=== PATIENT | male | born 1955 | race Caucasian/White ===

== ENCOUNTER → 2022-10-12 09:48 | Outpatient (CLI) | payer OTHER, SELFPAY | PROVIDERS: PCP Family Medicine; Visit Provider Physician Assistant | DX: N39.0 Urinary tract infection, site not specified (principal); N40.0 Benign prostatic hyperplasia without lower urinary tract symptoms; N41.9 Inflammatory disease of prostate, unspecified | CPT/HCPCS: 87077; 87086 ==

== ENCOUNTER → 2022-11-15 16:39 | Outpatient (CLI) | payer OTHER, SELFPAY ==
--- NOTE | 2022-11-15 16:41 | DI.US.S_ITS ---
PROCEDURE: US ABDOMEN COMPLETE INDICATIONS: ABDOMINAL PAIN TECHNIQUE: Real-time scanning was performed of the abdominal and retroperitoneal organs, with image documentation. COMPARISON: None. FINDINGS: Liver: Liver is normal in size and homogeneous in echotexture. Gallbladder: No stones. Wall thickness is normal measuring 1.4 mm. Biliary ducts: Not well seen although no gross dilation. Pancreas: Visualized portions of the pancreas are sonographically normal. Spleen: Spleen is normal in size and homogeneous in echotexture. Kidneys: Kidneys are normal in size and echotexture. Right kidney measures 13.5 cm long; left kidney measures 13.7 cm long. No hydronephrosis or nephrolithiasis. No solid masses. Aorta: Aorta is poorly visualized secondary to overlying bowel gas. The midportion appears prominent within visualized sections measuring approximately 4.3 x 4.1 x 3.3 cm. However, it is suboptimally evaluated. Iliacs: Proximal common iliac arteries are normal in caliber at less than 2.5 cm. IVC: Intrahepatic inferior vena cava is patent. Miscellaneous: No free abdominal fluid. Prostate gland is enlarged. IMPRESSION: Potential mid aortic aneurysmal dilation. It is poorly visualized secondary to overlying bowel gas. Short interval imaging follow-up is recommended for further evaluation. Dictated by: Criselda Gleason M.D. on 11/16/2022 at 15:07 Approved by: Criselda Gleason M.D. on 11/16/2022 at 15:09
== END ==
PROVIDERS: PCP Family Medicine; Referring Provider Family Medicine; Visit Provider Family Medicine
DX: R10.11 Right upper quadrant pain (principal); G89.29 Other chronic pain
CPT/HCPCS: 76700

== ENCOUNTER → 2022-12-27 11:47 | Outpatient (CLI) | payer OTHER, SELFPAY | PROVIDERS: PCP Family Medicine; Visit Provider Urology | DX: R31.0 Gross hematuria (principal) | CPT/HCPCS: 87086 ==

== ENCOUNTER → 2023-01-08 09:32 | Outpatient (CLI) | payer OTHER, SELFPAY | PROVIDERS: PCP Family Medicine; Visit Provider Urology | DX: R31.0 Gross hematuria (principal) | CPT/HCPCS: 87086 ==

== ENCOUNTER → 2023-01-12 09:43 | Outpatient (CLI) | payer OTHER, SELFPAY | PROVIDERS: PCP Family Medicine; Visit Provider Urology | DX: N40.0 Benign prostatic hyperplasia without lower urinary tract symptoms (principal); R31.9 Hematuria, unspecified; Z85.51 Personal history of malignant neoplasm of bladder | CPT/HCPCS: 52000; 81002; 87086; 99213 ==

== ENCOUNTER → 2023-01-22 10:45 | Outpatient (CLI) | payer OTHER, SELFPAY ==
[2023-01-22 12:05] LABS: Estimated Glomerular Filt Rate > 60 mL/min (>60)
== END ==
PROVIDERS: PCP Family Medicine; Referring Provider Family Medicine; Visit Provider Family Medicine
DX: N40.0 Benign prostatic hyperplasia without lower urinary tract symptoms (principal); R31.9 Hematuria, unspecified; Z85.51 Personal history of malignant neoplasm of bladder
CPT/HCPCS: 36415; 82565

== ENCOUNTER → 2023-01-26 10:51 | Outpatient (CLI) | payer OTHER, SELFPAY ==
--- NOTE | 2023-01-26 10:53 | DI.CT.S_ITS ---
PROCEDURE: CT ABDOMEN PELVIS WO/W CON INDICATIONS: History of bladder cancer/history of PAE TECHNIQUE: Optional 5 mm thick noncontrast images acquired from the diaphragm to the symphysis pubis. After the administration of intravenous contrast, 5 mm thick images acquired from the diaphragm to the symphysis pubis after a 10-minute delay. 2 mm thick coronal and sagittal reformats were then performed of the kidneys and ureters. For radiation dose reduction, the following was used: automated exposure control, adjustment of mA and/or kV according to patient size. COMPARISON: None. FINDINGS: Image quality: Excellent. Lung bases: Lung bases are clear. Heart size is normal. Urinary system: Both kidneys are normal in size, without hydronephrosis or nephrolithiasis on pre-contrast images. No perinephric fat stranding. There is normal bilateral renal enhancement. Renal calyces appear normal in morphology when filled with contrast. Opacified portions of both ureters demonstrate normal caliber. Bladder wall thickness is normal. No calcified bladder stones. There is a peripherally calcified mass projecting off the median zone of the prostate measuring 3.5 x 2.1 centimeters. Other solid organs: Liver is normal in size and enhancement. Gallbladder is absent. Biliary system is non dilated. Pancreas enhances normally. Spleen is normal in size and enhancement. No adrenal nodules. Peritoneum and bowel: Bowel loops demonstrate normal wall thickness and caliber. No free fluid or air. Nodes and vessels: No retroperitoneal or mesenteric adenopathy by size criteria. Aorta and inferior vena cava are normal in size. Abdominal wall: No ventral hernias. Pelvis: No pathologic free pelvic fluid. No inguinal hernias or adenopathy. Prostatomegaly Bones: No suspicious bony lesions. No vertebral body compression fractures. Bilateral sacroiliitis. IMPRESSION: There is a peripherally calcified mass projecting off the median zone of the prostate measuring 3.5 x 2.1 centimeters. Is unclear if this is prostatic in etiology versus bladder wall adjacent to the prostate. Direct visualization is recommended, if not performed recently. Prior pelvic lymph node dissection, without adenopathy. Dictated by: Rafat lGaser M.D. on 01/26/2023 at 13:42 Approved by: Rafat Glaser M.D. on 01/26/2023 at 13:51
== END ==
PROVIDERS: PCP Family Medicine; Referring Provider Urology; Visit Provider Urology
DX: N42.0 Calculus of prostate (principal); R31.9 Hematuria, unspecified; N40.0 Benign prostatic hyperplasia without lower urinary tract symptoms; I71.9 Aortic aneurysm of unspecified site, without rupture; Z85.51 Personal history of malignant neoplasm of bladder; Z98.890 Other specified postprocedural states
CPT/HCPCS: 74178; Q9967

== ENCOUNTER → 2023-02-02 11:51 | Outpatient (CLI) | payer OTHER, SELFPAY ==
[2023-02-02 20:31] LABS: Appearance Urine UA CLEAR; Bilirubin Urine UA NEGATIVE (NEGATIVE); Color Urine UA YELLOW; Glucose Urine UA NEGATIVE (Negative); Ketones Urine UA NEGATIVE (NEGATIVE); Leukocyte Esterase Urine UA 2+ (NEGATIVE); Nitrite Urine UA POSITIVE (Negative); Occult Blood Urine UA 2+ (Negative); Protein Urine UA 1+ (Negative); Urobilinogen Urine UA 0.2 E.U./dL (0.2)
[2023-02-02 20:45] LABS: RBC Urine 1-5/HPF (0-5/HPF); WBC Urine 10-30/HPF (0-5/HPF)
[2023-02-02 20:46] LABS: Bacteria Urine Moderate (10-30)
== END ==
PROVIDERS: PCP Family Medicine; Visit Provider Urology
DX: N40.1 Benign prostatic hyperplasia with lower urinary tract symptoms (principal); N41.0 Acute prostatitis; R31.0 Gross hematuria
CPT/HCPCS: 81001; 87077; 87086

== ENCOUNTER → 2023-02-26 11:03 | Outpatient (CLI) | payer OTHER, SELFPAY ==
[2023-02-26 19:15] LABS: Appearance Urine UA CLEAR; Bilirubin Urine UA NEGATIVE (NEGATIVE); Color Urine UA YELLOW; Glucose Urine UA NEGATIVE (Negative); Ketones Urine UA NEGATIVE (NEGATIVE); Leukocyte Esterase Urine UA 2+ (NEGATIVE); Nitrite Urine UA NEGATIVE (Negative); Occult Blood Urine UA 3+ (Negative); Protein Urine UA NEGATIVE (Negative); Specific Gravity Urine UA <=1.005 (1.000-1.035); Urobilinogen Urine UA 0.2 E.U./dL (0.2)
[2023-02-26 20:03] LABS: RBC Urine None Seen (0-5/HPF); WBC Urine 1-5/HPF (0-5/HPF)
[2023-02-26 20:04] LABS: Bacteria Urine None Seen; Culture Indicated Urine Specimen Cultured
== END ==
PROVIDERS: PCP Family Medicine; Visit Provider Urology
DX: N40.1 Benign prostatic hyperplasia with lower urinary tract symptoms (principal); R31.0 Gross hematuria
CPT/HCPCS: 81001; 87086

== ENCOUNTER 2023-03-06 06:40 | Day surgery (SDC) | payer OTHER, SELFPAY ==
[2023-02-28 14:01] VITALS: BMI 26.9
[2023-03-06] VITALS (7 sets, daily range): BP systolic 103–118; BP diastolic 59–68; PULSE 52–64; RESP 7–18; TEMP 35.8–36.4; O2SAT 98–100; BMI 26.9
--- NOTE | 2023-03-06 | PATH_ITS ---
[facility] Accession Number: [id number] No. of containers..02 Tissue . 01 Material submitted: . PART A: prostate - PROSTATE CALCIFICATION -FRESH PART B: prostate - PROSTATE CHIPS . 01 Diagnosis: A. Prostate Calcifications, Removal: Necrotic tissue with associated dystrophic calcifications, numerous crystals, hematoidin pigment, acute inflammation, and bacterial colonization. No evidence of malignancy. . B. Prostate Chips, Removal: Prostatic tissue with necrosis, chronic and active inflammation, focal calcifications, numerous collections of crystals, and bacterial colonization. No evidence of malignancy. MRV 03/13/2023 1703 Local . 01 Electronically signed: . Lexis Wayne MD, Pathologist NPI- [id number] . 01 Gross description: . A. Received fresh and subsequently placed in formalin, per Dr. Houston and Dr. Crabtree, labeled with the patient's name, , and prostate calcification consists of multiple fragments of dobson, variable soft to gritty tissue weighing 7 grams and aggregating to 3.8 x 3.7 x 2.2 cm. Sectioning reveals a dobson, soft to gritty cut surface. The specimen is submitted entirely in cassettes A1-A8 following a brief decalcification. B. Received in formalin labeled with the patient's name, and prostate chips consists of multiple dobson, rubbery tissue fragments weighing 4 grams and aggregating to 4.4 x 3.1 x 0.5 cm. No discrete lesions are identified. The specimen is submitted entirely in cassettes B1-B3. ([id number]) /MRV 03/07/2023 1909 Local . 01 Pathologist provided ICD-10: N42.0, N21.0 . 01 CPT . 5722732, 600476 Specimen Comment: A courtesy copy of this report has been sent to [phone] Performed at: 01 [facility] [address] [place] [address] [address] [address], [place], [place] [id number] MD Felix Crabtree MD Phone: [phone]
[2023-03-06] MEDS: LACTATED RINGERS 1,000 ML 21 ML IV (07:27)
--- NOTE | 2023-03-06 07:35 | PM.PREOP ---
Pre-operative Note COVID-19 COVID-19 status: Not tested Criteria for continued procedure: Delay expected to result in less-positive ultimate med/surg outcome and Non-surgical alternatives not available or appropriate per current SOC Interval Note History & Physical reviewed/Exam performed by Physician: Yes Changes to H&P: No
[2023-03-06] MEDS: CEFAZOLIN 2 GM/100 ML PREMIX 100 ML IV (07:55)
--- NOTE | 2023-03-06 08:15 | SUR.OPER ---
Lithotomy on padded OR bed, head on pillow, arms secured on padded arm boards at <90 degrees abduction. Legs secured in padded yellow fins stirrups.
[2023-03-06] MEDS: ACETAMINOPHEN 325 MG TABLET PO (08:22)
--- NOTE | 2023-03-06 09:18 | P.OP_ITS ---
Procedure & Clinicians Procedure: Transurethral resection of prostate, cystolitholapaxy mechanical and laser, evacuation of dystrophic calcification and necrotic tissue Same procedure as scheduled: Yes Indications: This 67-year-old male had prostate artery embolization in [facility] to treat his bladder outlet obstruction. He presented with complaints of hematuria and was found to have bladder/prostate calcifications and necrotic material in the prostate. He presents at this time for removal of these abnormal tissues. Surgeon: Luis Houston Click Yes if Unassisted: Yes Anesthesia Type: General Operative Notes Findings: Urethral meatus and urethra normal with normal mucosa. The sphincter as well coapted. Once in the prostate particularly on the patient's right side there is a preponderance of what appears to be necrotic tissue. The prostate bladder junction there is calcifications and as it turns out dystrophic and necrotic tissue. The bladder exhibited some bullous edema. The right ureteral orifice was not observed the left ureteral orifice was in normal position with clear efflux. The dystrophic calcification and putty like tissue was sent as 1 specimen and the resected necrotic prostate tissue as prostate chips and a separate specimen. At the end of the procedure the prostate was wide open. And a 22 Surinamese 5 cc Baird catheter was left in place with 14 cc of sterile water in the balloon. Closure Type: not applicable Specimen(s): other (1. Dystrophic calcifications bladder calcification prostate calcification and putty like tissue2. Prostate chips) Applied: catheter ([address] Baird catheter 14 cc in balloon) Estimated Blood Loss (mL): 5 Blood products transfused: none Procedure in detail: Procedure in detail: After informed consent was obtained, the patient was identified and brought to the operating room previous placed in a supine position on the operative table. Anesthesia was then induced and maintained. Ensuring an adequate level of anesthesia the patient was transitioned to the lithotomy position where he was prepped, draped, prepared for Transurethral procedure. After prepping, draping, time-out and ensuring an adequate level of anesthesia 22 Surinamese cystoscope was passed through the urethra prostate and into the bladder where cystoscopy was performed. With the findings in hand the cystoscope was removed and a continuous-flow laser cystoscope was put in place and laser energy applied to the calcifications on the stone. Has a crossed of calcification was entered there was tissue which did not respond well to the laser therefore the laser was put on standby the laser cystoscope was removed and a regular cystoscope put in place stone crushing forceps was then used to ?chew up and crush the abnormal tissue and stony material?. This was then evacuated and removed with the aid of the stone court advocate. With all of this abnormal tissue and stone removed the continuous flow resectoscope was inserted and the abnormal prostate tissue resected. With this done the chips were then evacuated. Hemostasis was good the bladder was left full and the scope removed. The 22 Surinamese catheter was placed with the aid of a catheter guide 14 cc of sterile water placed in the balloon and the catheter placed to gravity drainage. Patient was awakened having tolerated the procedure well. He was then transferred to the postanesthesia care unit for recovery to be discharged to home. There were no complications Complications: none Post-operative Condition: stable Disposition: PACU Plan for aftercare: Patient to be discharged to home with a Baird catheter. Patient to follow up my office in approximately 10-14 days and this for a voiding trial
[2023-03-06] MEDS: ONDANSETRON 4 MG/2 ML INJ IV (10:54)
== END 2023-03-06 11:48 | disposition home or self-care (01) ==
PROVIDERS: PCP Family Medicine; Referring Provider Urology; Visit Provider Urology
PROC: (CPT 52601; principal; 2023-03-06 07:45)
DX: N21.0 Calculus in bladder (principal); N42.0 Calculus of prostate; Z85.51 Personal history of malignant neoplasm of bladder; I96 Gangrene, not elsewhere classified; N41.0 Acute prostatitis; N41.1 Chronic prostatitis; B96.89 Other specified bacterial agents as the cause of diseases classified elsewhere
CPT/HCPCS: 52601; 52317; J0690; J1885; J2405; J2704; J3010

== ENCOUNTER → 2023-03-21 12:01 | Outpatient (CLI) | payer OTHER, SELFPAY | PROVIDERS: PCP Family Medicine; Visit Provider Urology | DX: N40.0 Benign prostatic hyperplasia without lower urinary tract symptoms (principal); N32.89 Other specified disorders of bladder; N41.9 Inflammatory disease of prostate, unspecified; R31.9 Hematuria, unspecified; N41.0 Acute prostatitis; R39.9 Unspecified symptoms and signs involving the genitourinary system; Z77.22 Contact with and (suspected) exposure to environmental tobacco smoke (acute) (chronic) | CPT/HCPCS: 51798; 81002; 87086 ==

== ENCOUNTER → 2023-04-25 13:01 | Outpatient (CLI) | payer OTHER, SELFPAY | PROVIDERS: PCP Family Medicine; Visit Provider Urology | DX: N32.89 Other specified disorders of bladder (principal); R31.9 Hematuria, unspecified; R39.9 Unspecified symptoms and signs involving the genitourinary system | CPT/HCPCS: 81002; 87086 ==

== ENCOUNTER → 2023-05-28 10:10 | Outpatient (CLI) | payer OTHER, SELFPAY ==
[2023-05-28 20:01] LABS: Add Manual Diff / Slide Review NO; Basophils Absolute Auto 0 /uL (0-100); Basophils Percent Auto 0.6 % (0-2); Eosinophils Absolute Auto 200 /uL (0-450); Eosinophils Percent Auto 5.8 % (2-4); Hematocrit 39.1 % (41-53); Hemoglobin 13.2 g/dL (13.5-17.5); Lymphocytes Absolute Auto 1500 /uL (1100-4500); Lymphocytes Percent Auto 37.2 % (25-40); Mean Corpuscular HGB Conc 33.7 % (30-36); Mean Corpuscular Hemoglobin 29.9 PG (26-34); Mean Corpuscular Volume 88.6 fL (80-100); Monocytes Absolute Auto 400 /uL (0-900); Monocytes Percent Auto 9.7 % (3-14); Neutrophils Absolute Auto 1900 /uL (1500-7000); Neutrophils Percent Auto 46.7 % (50-75); Platelet Count 220 X10^3/uL (150-400); Red Blood Cell Count 4.41 X10^6/uL (4.5-5.9); Red Cell Distribution Width 13.6 % (11.6-14.8); White Blood Cell Count 4.1 X10^3/uL (4.5-11.0)
[2023-05-28 20:15] LABS: Alanine Aminotransferase 25 IU/L (<50); Albumin 4.1 g/dL (3.5-5.0); Albumin Globulin Ratio 1.4 (1.0-2.8); Alkaline Phosphatase 71 U/L (38-126); Aspartate Aminotransferase 29 IU/L (17-59); BUN Creatinine Ratio 23.9 (6-22); Bilirubin Total 0.7 mg/dL (0.2-1.3); Blood Urea Nitrogen 16 mg/dL (9-20); Carbon Dioxide 32 mmol/L (22-32); Chloride 98 mmol/L (98-107); Estimated Glomerular Filt Rate > 60 mL/min (>60); Glucose 97 mg/dL (80-110); HEMOLYSIS < 15 (0-50); Lipase 129 U/L (23-300); Potassium 4.1 mmol/L (3.4-5.1); Sodium 134 mmol/L (137-145); Total Protein 7.1 g/dL (6.3-8.2)
[2023-05-28 20:30] LABS: Hemoglobin A1C% w Est Avg Glu 5.5 % (4.0-6.0)
[2023-05-28 20:38] LABS: TSH w/ Reflex to FT4 2.36 uIU/mL (0.47-4.68)
[2023-05-28 20:46] LABS: Prostate Specific Antigen Scrn 0.999 ng/mL (0.1-4.0)
[2023-05-28 21:04] LABS: Vitamin B12 701 pg/mL (239-931)
[2023-05-28 21:17] LABS: Hep C Virus Ab w/Reflex Quant NEGATIVE s/c (NEGATIVE)
== END ==
PROVIDERS: PCP Family Medicine; Visit Provider Physician Assistant
DX: R10.9 Unspecified abdominal pain (principal); Z12.5 Encounter for screening for malignant neoplasm of prostate; E53.8 Deficiency of other specified B group vitamins; R73.03 Prediabetes
CPT/HCPCS: 80053; 82607; 83036; 83690; 84443; 85025; 86803; G0103

== ENCOUNTER → 2023-05-29 12:08 | Outpatient (CLI) | payer OTHER, SELFPAY ==
--- NOTE | 2023-05-29 12:09 | DI.US.S_ITS ---
PROCEDURE: US ABD AORTA ANEURYSM SCREEN INDICATIONS: AAA TECHNIQUE: Real time scanning was performed of the aorta and iliac arteries, with image documentation. COMPARISON: [facility], US, US ABDOMEN COMPLETE, 11/15/2022, 17:00. [facility], CT, CT ABDOMEN PELVIS WO/W CON, 01/26/2023, 11:02. FINDINGS: Aorta: Proximal aorta is not well visualized. Mid-aorta measures 4.0 cm. Distal aortic diameter is 2.3 cm. Iliac arteries: Right common iliac artery measures 1.7 cm. Left common iliac artery measures 1.7 cm. IMPRESSION: Abdominal aortic aneurysm. 1 year sonographic follow-up recommended. Dictated by: Sherri Salazar M.D. on 05/29/2023 at 14:58 Approved by: Sherri Salazar M.D. on 05/29/2023 at 15:00
== END ==
PROVIDERS: PCP Family Medicine; Referring Provider Family Medicine; Visit Provider Family Medicine
DX: I71.40 Abdominal aortic aneurysm, without rupture, unspecified (principal)
CPT/HCPCS: 76706

== ENCOUNTER 2023-08-14 11:56 | Day surgery (SDC) | payer OTHER, SELFPAY ==
[2023-08-14] MEDS: FLEETS ENEMA 1 EACH PR ×2 (12:07→12:38)
[2023-08-14 12:16] VITALS: BMI 25.6
[2023-08-14 12:29] VITALS: BP 119/63; PULSE 94; RESP 16; TEMP 36; O2SAT 99
[2023-08-14] MEDS: LACTATED RINGERS 1,000 ML 42 ML IV (12:38)
--- NOTE | 2023-08-14 12:51 | PM.HP.1 ---
History of Present Illness History of Present Illness Chief complaint: [facility] Medical History (Updated 07/12/23 @ 07:38 by Jacob Nuno MD) Lower urinary tract symptoms Dystrophic calcification of bladder Exposure to secondhand smoke Hematuria Systolic heart failure (~2007) Surgical History (Updated 07/12/23 @ 07:38 by Jacob Nuno MD) Anesthesia History of shoulder surgery (~05/2002) History of hernia repair (~12/1987) Family History Father Stroke Mother Cancer Brother History of heart disease Mental health problem Social History household members: spouse Smoking Status: Never smoker alcohol intake: current Meds Home Medications and Allergies Home Medications Medication Instructions Recorded Confirmed Type CPAP Supplies #4 ea 03/21/22 06/27/23 Rx sodium,potassium,mag sulfates 17.5 See Rx Instructions PO .COMPLEX 06/19/23 08/14/23 Rx gram-3.13 gram-1.6 gram oral soln #354 mL (Suprep Bowel Prep Kit) Allergies Allergy/AdvReac Type Severity Reaction Status Date / Time ciprofloxacin Allergy Severe facial Verified 08/14/23 12:15 swelling levofloxacin Allergy Severe contraindication Verified 08/14/23 12:15 to all Floxacins sulfamethoxazole AdvReac Intermediate Rash Verified 08/14/23 12:15 [From Sulfamethoxazole-Trimethoprim] trimethoprim AdvReac Intermediate Rash Verified 08/14/23 12:15 [From Sulfamethoxazole-Trimethoprim] Exam Vital Signs (past 8 hours): - 08/14/23 12:29 Temperature 96.8 F L Pulse Rate 94 H Respiratory Rate 16 Blood Pressure 119/63 Pulse Oximetry 99 Oxygen Delivery Method Room Air Oxygen Delivery Method Room Air Narrative Exam Narrative: General adult man alert oriented no acute distress Chest nonlabored respiration Extremities warm well perfused Assessment & Plan Assessment & Plan narrative: The patient requires colorectal screening and colonoscopy is recommended. Technical details were discussed. Risks, benefits, alternatives explained. Risks including but not limited to myocardial infarction, aspiration, bleeding, pain, missed lesion, incomplete examination, need for further radiographic studies, colonic perforation, and need for major abdominal surgery were discussed. All questions were answered to their satisfaction, and they are in agreement with this plan.
[2023-08-14 13:15] VITALS: BP 107/65; PULSE 48; RESP 14; TEMP 36.3; O2SAT 97
--- NOTE | 2023-08-14 13:18 | P.OP.COLON_ITS ---
Operative Date/Time/Diagnoses Date of procedure: 08/14/23 Time of procedure: 13:18 Pre-op diagnosis: Colorectal screening Post-op diagnosis: other (Aborted colonoscopy) Procedure & Clinicians Study performed: Aborted colonoscopy Same procedure as scheduled: Yes Indications: Colorectal screening Surgeon: Aroldo Dent Procedure Notes Procedure in detail: The history and physical was performed/updated and the patient is ASA class is 2. The procedure was discussed in detail with the patient. Potential risks complications including infection, bleeding, missed diagnosis, perforation, need for surgery, and were explained. Their questions were answered and informed consent was obtained. Patient was brought to the procedure room and placed standard monitoring equipment. The patient's vital signs were monitored continuously throughout the entire procedure. Prior to starting time-out was performed. The patient was placed in the left lateral recumbent position. Procedural sedation was administered by anesthesia. Examination began with a thorough inspection of the perianal area there was no evidence of fissures, fistulae, external hemorrhoids or cutaneous malignancy. The colonoscopy scope was then placed into the anal c anal and was advanced forward. The quality of the preparation was quite poor and inadequate for safe and accurate performance of the examination. The procedure was aborted. Impression: Aborted colonoscopy Post-procedure Plan for aftercare: Repeat colonoscopy with alternative preparation. Disposition: same day surgery
[2023-08-14 13:20] VITALS: BP 108/69; PULSE 52; RESP 11; O2SAT 100
[2023-08-14 13:25] VITALS: BP 107/64; PULSE 49; RESP 12; RESP 16; O2SAT 96; O2SAT 99
[2023-08-14 13:42] VITALS: BP 102/71; PULSE 47; RESP 16; O2SAT 98
== END 2023-08-14 13:53 | disposition home or self-care (01) ==
PROVIDERS: PCP Family Medicine; Referring Provider Surgery; Visit Provider Surgery
PROC: 0DJD8ZZ Inspection of Lower Intestinal Tract, Via Natural or Artificial Opening Endoscopic (ICD-10-PCS; CPT 45378; principal; 2023-08-14 13:00)
DX: Z12.11 Encounter for screening for malignant neoplasm of colon (principal); Z53.09 Procedure and treatment not carried out because of other contraindication
CPT/HCPCS: G0121; J2704

== ENCOUNTER 2023-10-30 06:32 | Day surgery (SDC) | payer OTHER, SELFPAY ==
[2023-10-23 13:08] VITALS: BMI 26.9
--- NOTE | 2023-10-30 | PATH_ITS ---
[facility] Accession Number: [id number] No. of containers..01 Tissue . 01 Material submitted: . prostate - NECROTIC PROSTATE TISSUE . 01 Diagnosis: Necrotic Prostate Tissue, Removal: Fibromuscular tissue with reactive and necroinflammatory changes, hyalinized stroma, dystrophic calcifications, and rare atrophic glands. Urothelial mucosa with active inflammation and reactive epithelial changes. No evidence of malignancy. MRV 11/05/2023 1237 Local . 01 Electronically signed: . Genna Guerrero MD, Pathologist NPI- [id number] . 01 Gross description: . The specimen is received in formalin labeled with the patient's name, , and necrotic prostate tissue, and consists of multiple dobson, rubbery soft tissue fragments weighing 3 grams and aggregating to 3.3 x 3.2 x 1.0 cm with no discrete lesions identified. The specimen is submitted entirely in cassettes A1-A3. ([id number]) /RADHIKA 10/31/2023 1141 Local . 01 Pathologist provided ICD-10: Z85.51 . 01 CPT . 898137 Performed at: 01 [facility] [address] [place] [address] [address], [place], [place] [id number] MD Felix Crabtree MD Phone: [phone]
[2023-10-30 07:12] VITALS: BP 124/69; PULSE 53; RESP 17; TEMP 36.3; O2SAT 100; BMI 26.9
[2023-10-30] MEDS: LACTATED RINGERS 1,000 ML 42 ML IV ×2 (07:19→09:00)
--- NOTE | 2023-10-30 07:44 | PM.PREOP ---
Pre-operative Note COVID-19 COVID-19 status: Not tested Interval Note History & Physical reviewed/Exam performed by Physician: Yes Changes to H&P: No
--- NOTE | 2023-10-30 07:45 | P.HP_ITS ---
History of Present Illness History of Present Illness Date Patient Seen: 10/30/23 Time Patient Seen: 07:45 Date of Onset of Symptoms: 09/26/23 Chief complaint: Recurrent prostatic dystrophic calcification Narrative: This 68-year-old male had in the past prostatic artery embolization. This resulted in at 1 point a massive area of prostatic necrosis and dystrophic calcification. He presented in September and was found to have recurrence at surveillance cystoscopy. He presents at this time for resection of this abnormal tissue. The procedure, risks, alternatives discussed the patient questions were answered and he wished to proceed. Risks to include but not limited to bleeding, infection, injury to surrounding structures, need for future surgeries, need for Baird catheter, prostatic injury, onset of stricture disease, inability to urinate, unforeseen and unpredictable consequences in sequelae. Patient voices understanding and acceptance of risks and wishes to proceed. [facility] Medical History Embolism Prostatic necrosis Lower urinary tract symptoms Dystrophic calcification of bladder Exposure to secondhand smoke Hematuria Systolic heart failure (~2007) Surgical History Hx of colonoscopy (08/14/23) History of urologic surgery (03/06/23) Anesthesia History of shoulder surgery (~05/2002) History of hernia repair (~12/1987) Family History Father Stroke Mother Cancer Brother History of heart disease Mental health problem Social History household members: spouse Smoking Status: Never smoker alcohol intake: current Meds Home Medications and Allergies Allergies Allergy/AdvReac Type Severity Reaction Status Date / Time ciprofloxacin Allergy Severe facial Verified 10/30/23 07:06 swelling levofloxacin Allergy Severe contraindication Verified 10/30/23 07:06 to all Floxacins sulfamethoxazole AdvReac Intermediate Rash Verified 10/30/23 07:06 [From Sulfamethoxazole-Trimethoprim] trimethoprim AdvReac Intermediate Rash Verified 10/30/23 07:06 [From Sulfamethoxazole-Trimethoprim] Review of Systems Review of Systems ROS: Yes All systems reviewed with the patient and are negative except as otherwise documented (And problem list) Exam Vital Signs (past 8 hours): - 10/30/23 07:12 Temperature 97.3 F L Pulse Rate 53 L Respiratory Rate 17 Blood Pressure 124/69 Pulse Oximetry 100 Oxygen Delivery Method Room Air Oxygen Delivery Method Room Air Narrative Exam Narrative: General: This is an awake, alert, oriented male lying on a gurney and in no acute distress Lungs: Clear full and equal Cardiovascular exam: Regular rate and rhythm without murmur Abdominal exam: Soft, nontender, without palpable mass or hepatosplenomegaly Genitourinary exam: Normal male normal penis normal meatus, normal scrotum, normal testes, normal epididymis and cord structures Rectal exam: Not indicated so not done Neurologic exam: Grossly intact Assessment & Plan Assessment and plan (1) Prostatic necrosis: Status: Acute (2) Lower urinary tract symptoms: Status: Acute (3) Exposure to secondhand smoke: Status: Acute Plan Assessment and plan: 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 Patient is covered with appropriate antibiotics. COVID-19 COVID-19 status: Not tested Time Spent With Patient Time with patient: less than 30 minutes
[2023-10-30] MEDS: CEFAZOLIN 2 GM/100 ML PREMIX 100 ML IV (08:00)
--- NOTE | 2023-10-30 08:17 | SUR.OPER ---
Lithotomy on padded OR bed, head on pillow, arms secured on padded arm boards at <90 degrees abduction. Legs secured in padded yellow fins stirrups.
--- NOTE | 2023-10-30 08:48 | P.OP_ITS ---
Procedure & Clinicians Procedure: Transurethral resection of necrotic prostate tissue Same procedure as scheduled: Yes Indications: This 68-year-old male had a prostatic artery embolization to relieve his bladder outlet obstruction this resulted in a large dystrophic calcification/necrotic mass which had previously been removed he came back with somewhat recurrent symptoms and had flexible cystoscopy and we had at cystoscopy on the right side of the prostate recurrent necrotic/dystrophic prostate tissue. He presents this time for his removal. Surgeon: Luis Houston Click Yes if Unassisted: Yes Anesthesia Type: General Operative Notes Findings: Urethral meatus and urethra normal with normal mucosa. Sphincter as well coapted. The prostatic fossa reveals on the right posterolateral aspect of the prostate necrotic tissue. It is yellow and dobson frondular and has some calcifications makes within it. The remainder of the prostate is widely patent. With some irregularity. It does still bulge somewhat into the bladder the ureteral orifices in normal position with clear efflux. The bladder itself exhibits normal mucosa without abnormality. At the end of the procedure the yellow tissue had been resected down to the normal garduno-white tissue of the prostate. There was no significant bleeding as it had been controlled with electrocautery and all the fragments were evacuated. No catheter was left in place. Closure Type: not applicable Specimen(s): other (Necrotic prostate tissue fragments) Prosthetic devices, grafts, tissues, transplants, or devices: None Estimated Blood Loss (mL): 0 Blood products transfused: none Procedure in detail: Procedure in detail: After informed consent was obtained, the patient was identified brought to the operating room where he was placed in his supine position on the table. Once there anesthesia was induced and maintained. Ensuring an adequate level of anesthesia the patient was transitioned to the lithotomy position where he was prepped, draped, prepared for Transurethral procedure. Showing an adequate level of anesthesia and after prepping, draping, time-out and administration of antibiotics 22 Bengali cystoscope was passed through the urethra prostate and then of the bladder. The urethra prostate and bladder were visualized with the findings in hand the scope was removed and the resectoscope put in place. They are using the working element and loop the yellow necrotic tissue was sequentially resected down to more normal appearing prostate tissue. At the end of the procedure the necrotic tissue appeared resected. Points of bleeding were controlled with electrocautery bladder was drained filled drained filled drained filled and hemostasis remained good all fragments were evacuated and collected sent to pathology for examination. With no bleeding in the prostatic fossa widely patent the bladder was drained scope was removed the patient was awakened having tolerated the procedure well. There were no complications the patient was transferred to the postanesthesia care unit for recovery. Once fully awake and alert he will be discharged to home to follow up with my office in approximately 14 days. Complications: none Post-operative Condition: stable Disposition: PACU Plan for aftercare: Discharge after Baird where he can alert follow-up my office 14 days
[2023-10-30 08:52] VITALS: BP 105/66; PULSE 51; RESP 18; TEMP 36.6; O2SAT 99
[2023-10-30 08:57] VITALS: BP 108/67; PULSE 51; RESP 12; O2SAT 100
[2023-10-30 09:03] VITALS: BP 106/67; PULSE 50; RESP 12; O2SAT 100
[2023-10-30 09:10] VITALS: BP 113/68; PULSE 51; RESP 12; O2SAT 100
== END 2023-10-30 09:39 | disposition home or self-care (01) ==
PROVIDERS: PCP Family Medicine; Referring Provider Urology; Visit Provider Urology
PROC: 0VT08ZZ Resection of Prostate, Via Natural or Artificial Opening Endoscopic (ICD-10-PCS; CPT 52601; principal; 2023-10-30 07:45)
DX: N42.89 Other specified disorders of prostate (principal); Z77.22 Contact with and (suspected) exposure to environmental tobacco smoke (acute) (chronic)
CPT/HCPCS: 52601; 82962; J0690; J1100; J1885; J2405; J2704

== ENCOUNTER → 2023-11-21 12:06 | Outpatient (CLI) | payer OTHER, SELFPAY | PROVIDERS: PCP Family Medicine; Visit Provider Urology | DX: N40.1 Benign prostatic hyperplasia with lower urinary tract symptoms (principal); R31.0 Gross hematuria; N42.89 Other specified disorders of prostate; R82.81 Pyuria; R39.9 Unspecified symptoms and signs involving the genitourinary system; Z85.51 Personal history of malignant neoplasm of bladder; Z98.890 Other specified postprocedural states; Z77.22 Contact with and (suspected) exposure to environmental tobacco smoke (acute) (chronic) | CPT/HCPCS: 51798; 81002; 87086 ==

== ENCOUNTER → 2024-05-13 10:00 | Outpatient (CLI) | payer OTHER, SELFPAY ==
[2024-05-13 19:40] LABS: Reticulocyte Count, Percent 0.8 % (0.9-2.6)
[2024-05-13 19:41] LABS: Add Manual Diff / Slide Review NO; Basophils Absolute Auto 0 /uL (0-100); Basophils Percent Auto 0.9 % (0-2); Eosinophils Absolute Auto 200 /uL (0-450); Eosinophils Percent Auto 4.4 % (2-4); Hematocrit 38.4 % (41-53); Hemoglobin 13.1 g/dL (13.5-17.5); Lymphocytes Absolute Auto 1400 /uL (1100-4500); Lymphocytes Percent Auto 36.7 % (25-40); Mean Corpuscular HGB Conc 34.1 % (30-36); Mean Corpuscular Hemoglobin 30.8 PG (26-34); Mean Corpuscular Volume 90.1 fL (80-100); Monocytes Absolute Auto 400 /uL (0-900); Monocytes Percent Auto 10.8 % (3-14); Neutrophils Absolute Auto 1900 /uL (1500-7000); Neutrophils Percent Auto 47.2 % (50-75); Platelet Count 230 X10^3/uL (150-400); Red Blood Cell Count 4.27 X10^6/uL (4.5-5.9); Red Cell Distribution Width 12.8 % (11.6-14.8); White Blood Cell Count 3.9 X10^3/uL (4.5-11.0)
[2024-05-13 20:31] LABS: HEMOLYSIS < 15 (0-50)
[2024-05-13 20:35] LABS: Iron 102 ug/dL (49-181)
[2024-05-13 20:42] LABS: Cholesterol 193 mg/dL (140-199); Glucose 99 mg/dL (80-110); HDL Cholesterol 50 mg/dL (40-60); LDL Cholesterol Calculated 134 mg/dL (<100); Triglycerides 47 mg/dL (35-150)
[2024-05-13 20:51] LABS: Transferrin 252 mg/dL (206-381)
[2024-05-13 21:10] LABS: TSH w/ Reflex to FT4 2.04 uIU/mL (0.47-4.68)
[2024-05-13 21:15] LABS: Prostate Specific Antigen 0.782 ng/mL (0.10-4.00)
[2024-05-13 21:28] LABS: Vitamin B12 915 pg/mL (239-931)
[2024-05-13 23:06] LABS: Percent Iron Saturation 30 % (20-50); Total Iron Binding Capacity 344 ug/dL (261-462)
== END ==
PROVIDERS: PCP Family Medicine; Visit Provider Family Medicine
DX: Z98.890 Other specified postprocedural states (principal); Z13.1 Encounter for screening for diabetes mellitus; Z11.59 Encounter for screening for other viral diseases; Z13.220 Encounter for screening for lipoid disorders; Z12.5 Encounter for screening for malignant neoplasm of prostate; Z13.6 Encounter for screening for cardiovascular disorders; D64.9 Anemia, unspecified; I71.9 Aortic aneurysm of unspecified site, without rupture; R73.03 Prediabetes
CPT/HCPCS: 80061; 82607; 82947; 83540; 83550; 84153; 84443; 85025; 85045; 86803

== ENCOUNTER → 2024-10-17 13:52 | Outpatient (CLI) | payer OTHER, SELFPAY | PROVIDERS: PCP Family Medicine; Visit Provider Urology | DX: R39.9 Unspecified symptoms and signs involving the genitourinary system (principal) | CPT/HCPCS: 87086 ==

== ENCOUNTER → 2024-11-20 11:03 | Outpatient (CLI) | payer OTHER, SELFPAY ==
[2024-11-20 22:03] LABS: Add Manual Diff / Slide Review NO; Basophils Absolute Auto 0 /uL (0-100); Basophils Percent Auto 0.3 % (0-2); Eosinophils Absolute Auto 200 /uL (0-450); Eosinophils Percent Auto 3.4 % (2-4); Hemoglobin 12.6 g/dL (13.5-17.5); Lymphocytes Absolute Auto 1400 /uL (1100-4500); Lymphocytes Percent Auto 19.7 % (25-40); Mean Corpuscular Hemoglobin 30.5 PG (26-34); Mean Corpuscular Volume 89.8 fL (80-100); Monocytes Absolute Auto 800 /uL (0-900); Monocytes Percent Auto 11.7 % (3-14); Neutrophils Absolute Auto 4700 /uL (1500-7000); Neutrophils Percent Auto 64.9 % (50-75); Platelet Count 287 X10^3/uL (150-400); Red Blood Cell Count 4.12 X10^6/uL (4.5-5.9); Red Cell Distribution Width 12.9 % (11.6-14.8); White Blood Cell Count 7.2 X10^3/uL (4.5-11.0)
[2024-11-20 22:18] LABS: Reticulocyte Count, Percent 0.9 % (0.9-2.6)
== END ==
PROVIDERS: PCP Family Medicine; Visit Provider Physician Assistant Medical
DX: M54.2 Cervicalgia (principal); D64.9 Anemia, unspecified
CPT/HCPCS: 85025; 85045

== ENCOUNTER → 2025-06-25 09:40 | Outpatient (CLI) | payer OTHER, SELFPAY ==
[2025-06-25 19:29] LABS: Add Manual Diff / Slide Review NO; Hematocrit 37.8 % (41-53); Hemoglobin 13.1 g/dL (13.5-17.5); Lymphocytes Absolute Auto 1400 /uL (1100-4500); Mean Corpuscular HGB Conc 34.7 % (30-36); Mean Corpuscular Hemoglobin 30.6 PG (26-34); Mean Corpuscular Volume 88.3 fL (80-100); Platelet Count 206 X10^3/uL (150-400)
[2025-06-25 19:36] LABS: Alanine Aminotransferase 22 IU/L (<50); Albumin 4.1 g/dL (3.5-5.0); Albumin Globulin Ratio 1.5 (1.0-2.8); Alkaline Phosphatase 67 U/L (38-126); Blood Urea Nitrogen 22 mg/dL (9-20); Calcium 9.0 mg/dL (8.4-10.2); Carbon Dioxide 29 mmol/L (22-32); Chloride 101 mmol/L (98-107); Cholesterol 170 mg/dL (140-199); Estimated Glomerular Filt Rate > 60 mL/min (>60); Globulin 2.8 g/dL (1.7-4.1); Glucose 95 mg/dL (70-99); HDL Cholesterol 55 mg/dL (40-60); HEMOLYSIS < 15 (0-50); Potassium 4.2 mmol/L (3.4-5.1); Sodium 138 mmol/L (137-145); Total Protein 6.9 g/dL (6.3-8.2); Triglycerides 47 mg/dL (35-150)
[2025-06-25 20:25] LABS: Vitamin B12 969 pg/mL (239-931)
== END ==
PROVIDERS: PCP Family Medicine; Visit Provider Physician Assistant
DX: E78.2 Mixed hyperlipidemia (principal); D64.9 Anemia, unspecified; Z79.899 Other long term (current) drug therapy; Z12.5 Encounter for screening for malignant neoplasm of prostate
CPT/HCPCS: 80053; 80061; 82607; 85025; G0103